=== PATIENT | female | born 1975 | race Two or more races ===

== ENCOUNTER 2024-07-19 19:39 | Emergency (ER) | payer OTHER ==
[~2024-07-19] VITALS: Ht 144.8 cm; Wt 54.4 kg
[2024-07-19] MEDS ORDERED: DICYCLOMINE HCL LIQ 10 MG/5 ML UDC ONE (20:03)
[2024-07-19] MEDS ORDERED: ONDANSETRON ODT 4 MG TAB.RAPDIS ONE (20:04)
[2024-07-19] MEDS: ONDANSETRON ODT 4 MG TAB.RAPDIS SL ONE (20:05)
[2024-07-19] MEDS: DICYCLOMINE HCL LIQ 10 MG/5 ML UDC PO ONE (20:05)
--- NOTE | 2024-07-19 20:45 | NUR ---
Patient states "I feel alot better now."
[2024-07-19] MEDS ORDERED: DICY20TA11 PO (21:32)
[2024-07-19] MEDS ORDERED: ONDA4TAB11 PO (21:32)
[2024-07-19 21:41] VITALS: BP 110/76; TEMP 97.8; O2SAT 100
--- NOTE | 2024-07-19 21:41 | NUR ---
Patient discharged to home in stable condition. Written and verbal after care instructions given. Patient verbalizes understanding of instructions. Stressed follow up or return to ER for worsening s/s.
== END 2024-07-19 21:42 | disposition home or self-care (01) ==
LOC: ER 19:40
DX: R10.84 Generalized abdominal pain (principal); R11.0 Nausea; Z90.49 Acquired absence of other specified parts of digestive tract
CPT/HCPCS: A4606; A4663; Q0162